=== PATIENT | male | born 1935 | race Caucasian/White ===

== ENCOUNTER 2017-05-26 14:30 | Outpatient (CLI) | payer OTHER ==
[2014-10-01 08:48] VITALS: O2SAT 97
== END 2017-05-26 14:31 | disposition home or self-care (01) | DRG 556 ==
LOC: CONVCARE 14:30
PROVIDERS: ATTEND Orthopaedic Surgery
DX: M25.551 Pain in right hip (principal)

== ENCOUNTER 2017-08-23 06:59 | Day surgery (SDC) | payer OTHER ==
[2017-08-23] MEDS ORDERED: LIDOCAINE HCL 1% MPF 30 SOL ONE (07:54)
[2017-08-23] MEDS ORDERED: PROPOFOL 500 MG/50 ML EMU IV ONE (07:55)
[2017-08-23 08:32] VITALS: TEMP 97; O2SAT 96
[2017-08-23 08:45] VITALS: RESP 20
[2017-08-23 08:51] VITALS: BP 144/81; PULSE 72
== END 2017-08-23 09:12 | disposition home or self-care (01) | DRG 392 ==
LOC: SURG 06:59
PROVIDERS: ATTEND Internal Medicine Gastroenterology
DX: K21.9 Gastro-esophageal reflux disease without esophagitis (principal); K44.9 Diaphragmatic hernia without obstruction or gangrene; K22.70 Barrett's esophagus without dysplasia; K22.2 Esophageal obstruction; L53.8 Other specified erythematous conditions
CPT/HCPCS: J2001; J2704

== ENCOUNTER 2017-11-03 11:39 | Outpatient (CLI) | payer OTHER ==
[2017-08-23 08:32] VITALS: O2SAT 96
== END 2017-11-03 11:40 | disposition home or self-care (01) | DRG 554 ==
LOC: CONVCARE 11:39
PROVIDERS: ATTEND Orthopaedic Surgery
DX: M16.11 Unilateral primary osteoarthritis, right hip (principal)
CPT/HCPCS: 73501

== ENCOUNTER 2017-11-24 05:30 | Inpatient (IN) | payer OTHER ==
[~2017-11-24 05:30] MED LIST: SODIUM CHLORIDE 0.9% FLUSH 10 ML SOL IV PRN
[2017-11-24] MEDS ORDERED: SCOPOLAMINE 1.5MG PATCH TD SCH (06:30)
[2017-11-24] MEDS ORDERED: LACTATED RINGERS 1,000 ML IV ONE (06:30)
[2017-11-24] MEDS ORDERED: BUPIVACAINE LIPOSOME 20 ML SUS ONE (07:03)
[2017-11-24] MEDS ORDERED: SODIUM CHLORIDE 20 ML 20 ML ONE (07:03)
[2017-11-24] MEDS ORDERED: MIDAZOLAM 2 MG/2 ML SOL ONE (07:23)
[2017-11-24] MEDS ORDERED: MORPHINE SULFATE 0.5 MG/ML SOL ONE (07:24)
[2017-11-24] MEDS ORDERED: PROPOFOL 500 MG/50 ML EMU IV ONE ×2 (07:26→09:06)
[2017-11-24] MEDS ORDERED: ONDANSETRON HCL 4 MG/2 ML SOL ONE (07:26)
[2017-11-24] MEDS ORDERED: LACTATED RINGERS 1,000 ML IV SCH (07:30)
[2017-11-24] MEDS ORDERED: DEXAMETHASONE 20 MG/5 ML (4 MG/ML SOL) ONE (07:33)
[2017-11-24] MEDS ORDERED: CEFAZOLIN SODIUM 1 GM PDS ONE ×3 (07:33→23:29)
[2017-11-24] MEDS ORDERED: PHENYLEPHRINE HYDROCHLORIDE 10 MG/ML SOL ONE (07:35)
[2017-11-24] MEDS ORDERED: TRANEXAMIC ACID 100 MG/ML SOL ONE ×2 (08:29→08:48)
[2017-11-24] MEDS ORDERED: PROPOFOL 10 MG/ML 200 MG/20 ML EMU IV ONE (09:07)
[2017-11-24] MEDS ORDERED: ONDANSETRON HCL 4 MG/2 ML SOL IV PRN (09:52)
[2017-11-24] MEDS ORDERED: HYDROMORPHONE HCL 2 MG/ML SOL IV PRN (09:52)
[2017-11-24] MEDS ORDERED: ALUMINUM/MAGNESIUM 30 ML SUS PO PRN (09:52)
[2017-11-24] MEDS ORDERED: DIAZEPAM 5 MG TAB PO PRN (09:52)
[2017-11-24] MEDS ORDERED: FLEET ENEMA PR PRN (09:52)
[2017-11-24] MEDS ORDERED: ONDANSETRON 4 MG ODT BU PRN (09:52)
[2017-11-24] MEDS ORDERED: MAGNESIUM HYDROXIDE 30 ML SUS PO PRN (09:52)
[2017-11-24] MEDS ORDERED: SODIUM CHLORIDE 0.9% 500 ML 500 ML IV PRN (09:52)
[2017-11-24] MEDS ORDERED: TEMAZEPAM 15MG 15 MG CAP PO PRN (09:52)
[2017-11-24] MEDS ORDERED: BISACODYL 10 MG SUP PR PRN (09:52)
[2017-11-24] MEDS ORDERED: DIPHENHYDRAMINE 25 MG CAP PO PRN (09:52)
[2017-11-24] MEDS ORDERED: CETIRIZINE HYDROCHLORIDE PO PRN (10:00)
[2017-11-24] MEDS: DEXTROSE/SALINE 0.45% 1,000 ML IV SCH ×2 (12:03→23:17)
[2017-11-24] MEDS: SODIUM CHLORIDE 0.9% FLUSH 10 ML SOL IV SCH ×2 (12:16→23:14)
[2017-11-24] MEDS: ACETAMINOPHEN 500 MG 500 MG TAB PO SCH ×3 (13:36→21:19)
[2017-11-24] MEDS ORDERED: SODIUM CHLORIDE 0.9% 100 ML 100 ML IV ONE ×2 (16:21→23:29)
[2017-11-24] MEDS: CEFAZOLIN SODIUM 1 GM PDS 2 GM in SODIUM CHLORIDE 0.9% 100 ML 100 ML IV SCH ×2 (16:28→23:35)
[2017-11-24] MEDS: METFORMIN HYDROCHLORIDE 500 MG TAB PO SCH (16:38)
[2017-11-24] MEDS: OXYCODONE HYDROCHLORIDE 5 MG TAB PO PRN ×2 (16:47→21:19)
[2017-11-24] MEDS: SENNOSIDES A AND B 8.6 MG TAB PO SCH (21:21)
[2017-11-25] MEDS: SODIUM CHLORIDE 0.9% FLUSH 10 ML SOL IV SCH ×3 (02:23→20:49)
[2017-11-25] MEDS: OXYCODONE HYDROCHLORIDE 5 MG TAB PO PRN ×5 (04:16→20:47)
[2017-11-25 07:31] LABS: HEMOGLOBIN 10.5 gm/dl (13.5-17.7); MEAN CORPUSCULAR HEMOGLOBIN 32.1 pg (27.0-32.0)
[2017-11-25] MEDS: HYDROCHLOROTHIAZIDE 25 MG TAB PO SCH (08:56)
[2017-11-25] MEDS: PANTOPRAZOLE SODIUM 40 MG ECT PO SCH (08:57)
[2017-11-25] MEDS: METFORMIN HYDROCHLORIDE 500 MG TAB PO SCH ×2 (08:57→17:14)
[2017-11-25] MEDS: ACETAMINOPHEN 500 MG 500 MG TAB PO SCH ×4 (08:57→20:47)
[2017-11-25] MEDS: CHOLECALCIFEROL 1,000 IU TAB PO SCH (08:58)
[2017-11-25] MEDS: ALLOPURINOL 100 MG TAB PO SCH (08:59)
[2017-11-25] MEDS: RIVAROXABAN 10 MG TAB PO SCH (08:59)
[2017-11-25] MEDS: SIMVASTATIN 20 MG TAB PO SCH (09:00)
[2017-11-25] MEDS ORDERED: HYDROMORPHONE 1 MG/ML SYRINGE IV PRN (14:00)
[2017-11-25] MEDS: SENNOSIDES A AND B 8.6 MG TAB PO SCH (20:48)
[2017-11-26] MEDS: OXYCODONE HYDROCHLORIDE 5 MG TAB PO PRN ×4 (01:01→13:00)
[2017-11-26] MEDS: SODIUM CHLORIDE 0.9% FLUSH 10 ML SOL IV SCH ×3 (03:42→17:48)
[2017-11-26 07:42] LABS: HEMOGLOBIN 10.4 gm/dl (13.5-17.7); MEAN CORPUSCULAR HEMOGLOBIN 32.1 pg (27.0-32.0)
[2017-11-26] MEDS: METFORMIN HYDROCHLORIDE 500 MG TAB PO SCH ×2 (08:48→17:47)
[2017-11-26] MEDS: CHOLECALCIFEROL 1,000 IU TAB PO SCH (08:48)
[2017-11-26] MEDS: QUINAPRIL HCL 40 MG TABLET PO SCH (08:48)
[2017-11-26] MEDS: PANTOPRAZOLE SODIUM 40 MG ECT PO SCH (08:49)
[2017-11-26] MEDS: SIMVASTATIN 20 MG TAB PO SCH (08:50)
[2017-11-26] MEDS: ACETAMINOPHEN 500 MG 500 MG TAB PO SCH ×4 (08:50→21:01)
[2017-11-26] MEDS: HYDROCHLOROTHIAZIDE 25 MG TAB PO SCH (08:50)
[2017-11-26] MEDS: ALLOPURINOL 100 MG TAB PO SCH (08:50)
[2017-11-26] MEDS: RIVAROXABAN 10 MG TAB PO SCH (08:51)
[2017-11-26] MEDS: SENNOSIDES A AND B 8.6 MG TAB PO SCH (21:01)
[2017-11-27] MEDS: SODIUM CHLORIDE 0.9% FLUSH 10 ML SOL IV SCH (02:42)
[2017-11-27] MEDS: OXYCODONE HYDROCHLORIDE 5 MG TAB PO PRN ×2 (02:42→12:11)
[2017-11-27 07:55] LABS: HEMOGLOBIN 10.1 gm/dl (13.5-17.7); MEAN CORPUSCULAR HGB CONC 32.9 gm/dl (32.0-36.0)
[2017-11-27] MEDS: CHOLECALCIFEROL 1,000 IU TAB PO SCH (09:04)
[2017-11-27] MEDS: HYDROCHLOROTHIAZIDE 25 MG TAB PO SCH (09:05)
[2017-11-27] MEDS: ALLOPURINOL 100 MG TAB PO SCH (09:05)
[2017-11-27] MEDS: METFORMIN HYDROCHLORIDE 500 MG TAB PO SCH (09:05)
[2017-11-27] MEDS: RIVAROXABAN 10 MG TAB PO SCH (09:05)
[2017-11-27] MEDS: PANTOPRAZOLE SODIUM 40 MG ECT PO SCH (09:06)
[2017-11-27] MEDS: ACETAMINOPHEN 500 MG 500 MG TAB PO SCH (09:06)
[2017-11-27] MEDS: QUINAPRIL HCL 40 MG TABLET PO SCH (09:06)
[2017-11-27] MEDS: SIMVASTATIN 20 MG TAB PO SCH (09:06)
[2017-11-27 13:08] VITALS: BP 128/65; PULSE 69; RESP 16; TEMP 98.2; O2SAT 99
== END 2017-11-27 14:35 | disposition home or self-care (01) | DRG 470 ==
LOC: ACUTE CARE 05:30
PROVIDERS: ADMIT Orthopaedic Surgery; ATTEND Orthopaedic Surgery
PROC: F01H0FZ Muscle Performance Assessment of Integumentary System - Whole Body using Assistive, Adaptive, Supportive or Protective Equipment (ICD-10-PCS; 2017-11-24)
PROC: F01L5YZ Range of Motion and Joint Integrity Assessment of Musculoskeletal System - Lower Back / Lower Extremity using Other Equipment (ICD-10-PCS; 2017-11-24)
PROC: F01ZBZZ Bed Mobility Assessment (ICD-10-PCS; 2017-11-24)
PROC: 0SR902A Replacement of Right Hip Joint with Metal on Polyethylene Synthetic Substitute, Uncemented, Open Approach (ICD-10-PCS; principal; 2017-11-24 08:00)
PROC: F02Z3ZZ Grooming/Personal Hygiene Assessment (ICD-10-PCS; 2017-11-25)
DX: M16.11 Unilateral primary osteoarthritis, right hip (principal); Z96.641 Presence of right artificial hip joint; E11.22 Type 2 diabetes mellitus with diabetic chronic kidney disease; I12.9 Hypertensive chronic kidney disease with stage 1 through stage 4 chronic kidney disease, or unspecified chronic kidney disease; N18.2 Chronic kidney disease, stage 2 (mild)
CPT/HCPCS: 36415; 73501; 73502; 82962; 85027; 94150; 99070; J0690; J1100; J2250; J2274; J2405; A6232; A9270-GY; J2370; J2704; J3490; L1830; Q3014

== ENCOUNTER 2018-01-12 12:32 | Outpatient (CLI) | payer OTHER ==
[2017-11-27 13:08] VITALS: O2SAT 99
== END 2018-01-12 12:33 | disposition home or self-care (01) | DRG 566 ==
LOC: CONVCARE 12:32
PROVIDERS: ATTEND Orthopaedic Surgery
DX: Z96.641 Presence of right artificial hip joint (principal)
CPT/HCPCS: 73502; 73564

== ENCOUNTER 2018-06-08 10:51 | Outpatient (CLI) | payer OTHER ==
[2017-11-27 13:08] VITALS: O2SAT 99
== END 2018-06-08 10:52 | disposition home or self-care (01) | DRG 558 ==
LOC: CONVCARE 10:51
PROVIDERS: ATTEND Orthopaedic Surgery
DX: M75.41 Impingement syndrome of right shoulder (principal)
CPT/HCPCS: 73030